=== PATIENT | male | born 1980 ===

== ENCOUNTER 2016-12-19 18:29 | Emergency (ER) | payer MEDICAID ==
[~2016-12-19] VITALS: Ht 170.2 cm; Wt 86.0 kg
[2016-12-19 19:08] VITALS: Ht 170.2 cm; Wt 86.0 kg
[2016-12-19] MEDS ORDERED: NAPR-260 PO (19:21)
--- NOTE | 2016-12-19 19:42 | ERD ---
ER Documentation Chief Complaint Date/Time DATE: 12/19/16 TIME: 19:39 Chief Complaint fro staple removal forehead HPI This is a 36-year-old male presents to the ER for suture removal. Patient states that he cut the sutures a month ago however did not come back. Patient is unable to remain in right did not know what to come back. He does not have any fevers or chills.there Is no discharge from area. He is complaining of intermittent headaches which have been going on for months. Headaches are described as sharp patient takes ibuprofen and he feels better. He denies any loss of consciousness. He denies any nausea or vomiting. He denies any vision changes. He denies any eye pain. He denies any neck pain or neck stiffness. ROS \12 point review of systems was done, all negative except per HPI. Medications Home Meds Active Scripts Naproxen* (Naprosyn*) 500 Mg Tablet, 500 MG PO BID Y for PAIN AND/OR INFLAMMATION, #30 TAB Prov:PHILIPCECILIO 12/19/16 Allergies Allergies: Coded Allergies: No Known Allergy (Unverified , 11/19/16) PMhx/Soc Hx Alcohol Use: Yes Hx Substance Use: Yes Hx Tobacco Use: Yes Physical Exam Vitals Vital Signs Date Time Temp Pulse Resp B/P Pulse Ox O2 Delivery O2 Flow Rate FiO2 12/19/16 19:08 97.3 89 20 142/75 100 Physical Exam GENERAL: The patient is well developed and appropriate for usual state of health , in no apparent distress. HEENT: Atraumatic. CHEST: Clear to auscultation bilaterally. There are no rales, wheezes or rhonchi. HEART: Regular rate and rhythm. No murmurs, clicks, rubs or gallops. NEURO: Alert and oriented. Cranial nerves II through XII are intact. Motor strength in all 4 extremities with 5/5 strength. Sensation grossly intact. Normal speech and gait. Negative Rhomberg. +2 DTRs. SKIN: There are 3 able middle forehead. No erythema, no discharge, no wound dishicenence Procedures/MDM This is a 36-year-old male presents to the ER for staple removal. [place] were removed by myself without any complications. There is no evidence of infection at this time. Patient is afebrile and well-appearing. Patient is neurologically intact with no focal neurological deficits. I doubt acute intracranial pathology. Patient needs to follow-up with his primary care doctor within 1-2 days or return to ER sooner symptoms worsen. My medical decision making was shared with the patient he understands and agrees with plan. Departure Diagnosis: Primary Impression: Encounter for removal of sutures Condition: Stable Patient Instructions: Suture Removal, No Complication Additional Instructions: Llame al doctor MAANA y zeeshan sadia MATT PARA DENTRO DE 1-2 PEÑA.Dgale a la secretaria que nosotros le instruimos hacer esta matt.Avise o llame si garcia condicin se empeora antes de la matt. Regresa aqui si peor o no mejor. CECILIO PALACIOS Dec 19, 2016 19:42
== END 2016-12-19 19:22 | disposition home or self-care (01) ==
LOC: E/R 18:29
DX: Z48.02 Encounter for removal of sutures (principal); Z72.0 Tobacco use
CPT/HCPCS: 99283